=== PATIENT | female | born 1925 | race Caucasian/White ===

== ENCOUNTER 2016-08-13 00:52 | Observation (INO) | payer MEDICARE, OTHER ==
[~2016-08-13] VITALS: Ht 185.4 cm; Wt 106.6 kg
[~2016-08-13 00:52] MED LIST: ALDACTONE 25MG25 MG PO; ASPIR-LOW81 MG PO; CARDIZEM SR 60M60 MG PO; CHRONULAC20 GM/30 M PO; COREG 12.5MG12.5 MG PO; DULCOLAX10 MG PR; ELIQUIS2.5 MG PO; EVISTA 60 MG TA60 MG PO; FLONASE 0.05% N16 GM; LINZESS290 MCG PO; MAGIC BUTT CREAM TOP; MIRALAX PACK 171 PKT PO; MYLICON CHEWABL80 MG PO; NEURONTIN 100100 MG PO; PRILOSEC OTC20 MG PO; SYNTHROID175 MCG PO; SYSTANE 0.3-0.1 EACH OU; TRAMADOL HCL50 MG PO; VITAMIN D50000 UNIT PO; ZYLOPRIM 100 M100 MG PO; ZYRTEC10 MG PO
[2016-08-13 03:12] LABS: HEMOGLOBIN 8.1 gm/dl (12.3-15.3); RED BLOOD COUNT 2.69 M/UL (4.00-5.10); WHITE BLOOD COUNT 8.2 K/UL (4.5-11.0)
[2016-08-13] MEDS ORDERED: TYLENOL 500 MG500 MG PO (15:18)
[2016-08-13] MEDS ORDERED: CONSTULOSE10 GM/15 M PO (15:20)
[2016-08-13] MEDS ORDERED: POLYSPORIN OP3.5 GM TOP (15:22)
[2016-08-13] MEDS ORDERED: FUROSEMIDE80 MG PO (15:24)
[2016-08-13] MEDS ORDERED: SODIUM CHLORIDE4 M1 NEB (15:25)
[2016-08-13] MEDS ORDERED: CARDIZEM 30MG T30 MG PO (15:26)
== END 2016-08-14 15:45 | disposition other institution (70) ==
LOC: ER1 00:52 → ZEROF 06:00 → MED SURG 4 14:30
PROVIDERS: Specialist/Technologist Athletic Trainer; ADMIT Family Medicine
DX: R53.1 Weakness (principal); J18.9 Pneumonia, unspecified organism; I48.2 Chronic atrial fibrillation; I13.0 Hypertensive heart and chronic kidney disease with heart failure and stage 1 through stage 4 chronic kidney disease, or unspecified chronic kidney disease; N18.3 Chronic kidney disease, stage 3 (moderate); I50.32 Chronic diastolic (congestive) heart failure; E03.9 Hypothyroidism, unspecified; R33.9 Retention of urine, unspecified; K21.9 Gastro-esophageal reflux disease without esophagitis; K59.00 Constipation, unspecified; M19.90 Unspecified osteoarthritis, unspecified site; M10.9 Gout, unspecified; Z86.73 Personal history of transient ischemic attack (TIA), and cerebral infarction without residual deficits; Z88.7 Allergy status to serum and vaccine; Z79.01 Long term (current) use of anticoagulants; Z79.82 Long term (current) use of aspirin; Z79.899 Other long term (current) drug therapy; Z90.49 Acquired absence of other specified parts of digestive tract; Z95.0 Presence of cardiac pacemaker; Z98.890 Other specified postprocedural states; Z79.52 Long term (current) use of systemic steroids; Z82.49 Family history of ischemic heart disease and other diseases of the circulatory system; Z83.3 Family history of diabetes mellitus
CPT/HCPCS: ECHO; 36415; 70450; 71010; 73630; 80053; 82140; 82550; 82553; 83874; 84484; 85025; 85610; 85730; 93005; 93306; 93880; 94640; 94664; 99285; G0378; J7040